=== PATIENT | male | born 1975 ===

== ENCOUNTER 2023-02-13 15:20 | Inpatient (IN) | payer OTHER ==
[~2023-02-13] VITALS: Ht 167.6 cm; Wt 91.6 kg
[2023-02-14] MEDS ORDERED: BENTYL10 MG/1 ML PO (12:20)
[2023-02-19] MEDS ORDERED: DIVALPROEX SOD500 MG (15:49)
[2023-02-19] MEDS ORDERED: FLONASE16 GM (15:49)
[2023-02-19] MEDS ORDERED: BUPROPION XL150 MG (15:49)
[2023-02-19] MEDS ORDERED: RESTORIL30 MG (15:49)
[2023-02-19] MEDS ORDERED: TRAZODONE HCL100 MG (15:49)
[2023-02-19] MEDS ORDERED: FAMOTIDINE20 MG (15:49)
[2023-02-19] MEDS ORDERED: MONTELUKAST SOD10 MG (15:49)
[2023-02-19] MEDS ORDERED: RISPERIDONE1 MG (15:49)
[2023-02-19] MEDS ORDERED: SERTRALINE HCL100 MG (15:50)
[2023-02-20] MEDS ORDERED: PEPCID AC20 MG PO (12:47)
[2023-02-20] MEDS ORDERED: HYOSCYAMINE0.125 M1 SL (12:47)
[2023-02-20] MEDS ORDERED: PERCOCET 5-3251 EACH PO (12:47)
== END 2023-02-20 14:39 | disposition home or self-care (01) | DRG 331 ==
LOC: O/R 02-17 09:51 → SURG 02-17 09:51 → SURH 02-17 10:30 → SURG 02-17 15:43
PROVIDERS: ADMIT Surgery; ATTEND Surgery
PROC: 0DBP4ZZ Excision of Rectum, Percutaneous Endoscopic Approach (ICD-10-PCS; 2023-02-17)
PROC: 0DJD8ZZ Inspection of Lower Intestinal Tract, Via Natural or Artificial Opening Endoscopic (ICD-10-PCS; 2023-02-17)
PROC: 0DTN4ZZ Resection of Sigmoid Colon, Percutaneous Endoscopic Approach (ICD-10-PCS; principal; 2023-02-17 16:00)
DX: K57.20 Diverticulitis of large intestine with perforation and abscess without bleeding (principal); R59.0 Localized enlarged lymph nodes; K66.0 Peritoneal adhesions (postprocedural) (postinfection)